=== PATIENT | male | born 1955 | race Caucasian/White ===

== ENCOUNTER 2016-12-05 12:39 | Emergency (ER) | payer MEDICAID, OTHER ==
[~2016-12-05] VITALS: Ht 190.5 cm; Wt 84.0 kg
[~2016-12-05 12:39] MED LIST: CHLO10CA2 PO
[2016-12-05 12:41] VITALS: BP 149/86; PULSE 82; RESP 20; TEMP 97.9; O2SAT 95
[2016-12-05] MEDS ORDERED: CEPHALEXIN MONOHYDRATE 500 MG CAP PO ONE (15:15)
[2016-12-05] MEDS ORDERED: methylPREDNISolone SOD SUCC 125 MG/2 ML VIAL IM ONE (15:15)
--- NOTE | 2016-12-05 15:57 | PD ---
HPI Chief Complaint: Medical Clearance Time Seen by Provider: 15:00 Travel History International Travel<30 days: No Contact w/Intl Traveler<30days: No Traveled to known affect area: No History of Present Illness HPI Patient is a 60-year-old homeless gentleman who presented to emergency department evaluation of itching. He states his scalp is been very itchy since he was treated for lice. He has no other complaints at this time. [facility] Past Medical History Medical History: Denies Significant Hx Diminished Hearing: No Social History Alcohol Use: Yes (DAILY, COPIOUS) Tobacco Use: Yes (1 PACK/DAY) Substance Use: Yes (OCC. WEED) Allergies-Medications (Allergen,Severity, Reaction): Coded Allergies: No Known Allergies (Unverified , 12/05/16) Reported Meds & Prescriptions Reported Meds & Active Scripts Active No Active Prescriptions or Reported Medications Review of Systems Except as stated in HPI: all other systems reviewed are Neg Skin: Positive Itching, Positive Lesions Physical Exam Narrative GENERAL: Disheveled, Well-nourished, well-developed patient. SKIN: Warm and dry. Excoriations noted to the base of the scalp, macular scabbed lesions scattered on his scalp. No lice or nits noted HEAD: Normocephalic. EYES: No scleral icterus. No injection or drainage. NECK: Supple, trachea midline. No JVD or lymphadenopathy. CARDIOVASCULAR: Regular rate and rhythm without murmurs, gallops, or rubs. RESPIRATORY: Breath sounds equal bilaterally. No accessory muscle use. GASTROINTESTINAL: Abdomen soft, non-tender, nondistended. MUSCULOSKELETAL: No cyanosis, or edema. BACK: Nontender without obvious deformity. No CVA tenderness. Data Data Last Documented VS Vital Signs Date Time Temp Pulse Resp B/P Pulse Ox O2 Delivery O2 Flow Rate FiO2 12/05/16 12:41 97.9 82 20 149/86 95 Room Air Orders Methylprednisolone So Succ Inj (Solumedr (12/05/16 15:15) Cephalexin (Keflex) (12/05/16 15:15) Wound Afb Culture And Stain (12/05/16 15:15) MDM Medical Decision Making Medical Screen Exam Complete: Yes Emergency Medical Condition: Yes Interpretation(s) Vital Signs Date Time Temp Pulse Resp B/P Pulse Ox O2 Delivery O2 Flow Rate FiO2 1/4/17 12:41 97.9 82 20 149/86 95 Room Air Differential Diagnosis Cellulitis versus scabies versus urticaria versus dermatitis versus other Narrative Course Patient is a 60-year-old male who presents emergency department for evaluation of itching to his scalp. Patient states that he was diagnosed with lice and treated in the emergency department and since that time he said significant itching. He has been observed sleeping on for complete in the room, when he is aroused by staff he starts scratching. We'll culture area of excoriation on scalp, patient will be given Solu-Medrol for itching and a dose of Keflex to prevent a secondary bacterial infection. Wound culture pending. Patient be discharged with Keflex prescription. He is encouraged to take medications as directed, avoid scratching area. He is encouraged to return to emergency department for any new or worsening symptoms. Patient was reassured that at this time there does not appear to be any lice or nits in his hair. Patient verbalizes understanding. Patient is stable for discharge. Diagnosis Primary Impression: Urticaria Additional Impression: Skin excoriation Referrals: [facility] Patient Instructions: General Instructions, Urticaria (ED) Additional Instructions: This medication is free at [facility] Complete full course of antibiotics Avoid scratching Follow-up with your primary doctor or at [facility] Return to emergency department for any new or worsening symptoms Med/Other Pt SpecificInfo: Prescription(s) given Scripts Cephalexin (Keflex)500 Mg Brl001 Mg PO Q12H 10 Days Ref 0 Prov:Cassidy Lucero 12/05/16 Disposition: 01 DISCHARGE HOME Condition: Stable Cassidy Lucero Dec 05, 2016 15:57
[2016-12-05] MEDS ORDERED: CEPH-460 PO (16:06)
== END 2016-12-05 16:24 | disposition home or self-care (01) ==
LOC: NEPB 12:39
DX: F17.210 Nicotine dependence, cigarettes, uncomplicated (principal); L50.9 Urticaria, unspecified; F42.4 Excoriation (skin-picking) disorder; B95.61 Methicillin susceptible Staphylococcus aureus infection as the cause of diseases classified elsewhere
CPT/HCPCS: 86403; 87070; 87186; 96372; 99283; J2930; 87015; 87116; 87206

== ENCOUNTER 2016-12-30 05:06 | Emergency (ER) | payer MEDICAID ==
[~2016-12-30] VITALS: Ht 190.5 cm; Wt 81.8 kg
[~2016-12-30 05:06] MED LIST changes: +CEPH-460 PO; -CHLO10CA2 PO
[2016-12-30 05:13] VITALS: BP 126/94; PULSE 83; RESP 16; TEMP 97.4; O2SAT 96
[2016-12-30] MEDS ORDERED: SODIUM CHLORIDE 0.9% FLUSH 5 ML FLUSH IVF PRN (05:30)
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
== END 2016-12-30 06:51 | disposition home or self-care (01) ==
LOC: NEPC 05:06
DX: F10.20 Alcohol dependence, uncomplicated (principal); S00.03XA Contusion of scalp, initial encounter; S09.90XA Unspecified injury of head, initial encounter; Y04.2XXA Assault by strike against or bumped into by another person, initial encounter; F17.210 Nicotine dependence, cigarettes, uncomplicated; F12.90 Cannabis use, unspecified, uncomplicated
CPT/HCPCS: 70450; 70486

== ENCOUNTER 2017-05-28 12:53 | Emergency (ER) | payer MEDICAID ==
[~2017-05-28] VITALS: Ht 190.5 cm; Wt 90.0 kg
[2017-05-28 12:57] VITALS: BP 148/84; PULSE 89; RESP 16; TEMP 98.2; O2SAT 98
--- NOTE | 2017-05-28 13:01 | PD ---
Physical Exam Date Seen by Provider: May 28, 2017 Time Seen by Provider: 12:59 Data Data Last Documented VS Vital Signs Date Time Temp Pulse Resp B/P Pulse Ox O2 Delivery O2 Flow Rate FiO2 05/28/17 12:57 98.2 89 16 148/84 98 MDM Supervised Visit with ZAFAR: No Narrative Course 61 YO M with complaint of left knee pain after falling down a step and striking on the concrete just before arrival. Vitals reviewed. Patient seen in triage, awaiting bed placement. Melyssa Mccarthy May 28, 2017 13:01
--- NOTE | 2017-05-28 13:54 | PD ---
HPI Chief Complaint: Injury Time Seen by Provider: 13:53 Travel History International Travel<30 days: No Contact w/Intl Traveler<30days: No Traveled to known affect area: No History of Present Illness HPI 61-year-old male who is a chronic alcoholic and homeless fell on his knee yesterday after he lost his balance. Patient says he was coming down the stairs and his knees felt like noodles. Since then he has had severe pain on his left knee. He also says that he did not eat anything since yesterday and is very hungry dizzy. Vital signs were stable. He is however awake and answering questions appropriately. PFSH Past Medical History Narrative Medical List of his past medical, surgical, social and family history was reviewed from the nursing note. Diminished Hearing: No ?: Not Social History Alcohol Use: Yes Tobacco Use: Yes Substance Use: No Allergies-Medications (Allergen,Severity, Reaction): Coded Allergies: No Known Allergies (Unverified , 05/28/17) Comments No known drug allergies. Reported Meds & Prescriptions Reported Meds & Active Scripts Active Ibuprofen 600 Mg Tab 600 Mg PO Q6H PRN Narrative Medication List of his home medications reviewed from the nursing note. Review of Systems Except as stated in HPI: all other systems reviewed are Neg Physical Exam Narrative GENERAL: Awake, alert, disheveled, poor skin hygiene SKIN: Focused skin assessment warm/dry. HEAD: Atraumatic. Normocephalic. EYES: Pupils equal and round. No scleral icterus. No injection or drainage. ENT: No nasal bleeding or discharge. Mucous membranes pink and moist. NECK: Trachea midline. No JVD. CARDIOVASCULAR: Regular rate and rhythm. No murmur appreciated. RESPIRATORY: No accessory muscle use. Clear to auscultation. Breath sounds equal bilaterally. GASTROINTESTINAL: Abdomen soft, non-tender, nondistended. Hepatic and splenic margins not palpable. MUSCULOSKELETAL: No obvious deformities. No clubbing. No cyanosis. No edema. Left knee is tender to touch. No obvious swelling or deformity noticed. NEUROLOGICAL: Awake and alert. No obvious cranial nerve deficits. Motor grossly within normal limits. Normal speech. PSYCHIATRIC: Appropriate mood and affect; insight and judgment normal. Data Data Last Documented VS Vital Signs Date Time Temp Pulse Resp B/P Pulse Ox O2 Delivery O2 Flow Rate FiO2 05/28/17 16:37 92 18 128/70 99 05/28/17 12:57 98.2 Orders Electrocardiogram (05/28/17 ) Knee, Complete (4vws) (05/28/17 ) Acetamin-Hydrocod 325-5 Mg ([place] 5-325 (05/28/17 14:00) Blood Glucose (05/28/17 14:18) ^ Knee Immobilizer (05/28/17 14:42) MDM Medical Decision Making Medical Screen Exam Complete: Yes Emergency Medical Condition: Yes Medical Record Reviewed: Yes Interpretation(s) Twelve-lead EKG was reviewed by me. Normal sinus rhythm, normal axis, nonspecific ST-T wave changes. Heart rate of 74 bpm. Differential Diagnosis Knee strain, knee contusion, fracture Narrative Course 2:17 PM. Awaiting for the x-ray to be done and resulted. Patient was given pain medication and something to eat and drink. 2:43 PM the x-ray shows small effusion. I'll put him on any mobilize and discharge him home. His blood sugar was 99. Procedures EKG Prior to Arrival: No Diagnosis Primary Impression: Knee contusion Qualified Code: S80.02XA - Contusion of left knee, initial encounter Additional Impression: Knee effusion, left Referrals: Primary Care Physician Additional Instructions: Please return to the ER if the condition worsens or any other new concerns. Otherwise follow-up with your primary care in couple days. Keep the knee immobilizer on and apply ice compress. Med/Other Pt SpecificInfo: Prescription(s) given Scripts Ibuprofen 600 Mg Dmv133 Mg PO Q6H PRN (Pain/Inflammation) #40 TAB Ref 0 Prov:Chadwick Choi MD 05/28/17 Disposition: 01 DISCHARGE HOME Condition: Stable Chadwick Choi MD May 28, 2017 13:53
[2017-05-28] MEDS ORDERED: ACETAMINOPHEN/HYDROcodone 325 MG/5 MG TAB PO ONE (14:00)
--- NOTE | 2017-05-28 14:40 | RADRPT ---
EXAM DATE/TIME: 05/28/2017 14:29 [facility] COMPARISON: No previous studies available for comparison. INDICATIONS : Left knee pain, fall. MEDICAL HISTORY : None. SURGICAL HISTORY : None. ENCOUNTER: Initial ACUITY: 1 day PAIN SCORE: 10/10 LOCATION: Left entire knee FINDINGS: Small knee joint effusion. No displaced fracture fragments identified. Normal bone density. Mild narr owing of the medial tibiofemoral compartment. CONCLUSION: Small effusion. Lavelle Celestin MD on May 28, 2017 at 14:37 Board Certified Radiologist. This report was verified electronically.
[2017-05-28] MEDS ORDERED: IBUP-232 PO (14:45)
[2017-05-28 16:37] VITALS: BP 128/70; PULSE 92; RESP 18; O2SAT 99
--- NOTE | 2017-05-29 23:46 | EKG ---
Date Performed: 05/28/2017 Time Performed: 13:59:46 PTAGE: 61 years EKG: Sinus rhythm NORMAL ECG PREVIOUS TRACING : 09/23/2016 16.47 Compared to prior tracing no significant change DOCTOR: Melany Gale Interpretating Date/Time 05/29/2017 23:45:31
== END 2017-05-28 16:39 | disposition home or self-care (01) ==
LOC: NEPD 12:53
DX: S80.02XA Contusion of left knee, initial encounter (principal); M25.462 Effusion, left knee; F10.10 Alcohol abuse, uncomplicated; Z59.0 Homelessness; W10.8XXA Fall (on) (from) other stairs and steps, initial encounter; Y93.9 Activity, unspecified; Y92.9 Unspecified place or not applicable; Y99.9 Unspecified external cause status; Z72.0 Tobacco use
CPT/HCPCS: 73564; 93005